=== PATIENT | female | born 1965 | race Caucasian/White ===

== ENCOUNTER 2017-06-25 11:09 | Emergency (ER) | payer OTHER, MEDICAID ==
[2017-06-25 11:20] VITALS: O2SAT 97
--- NOTE | 2017-06-25 13:21 | EDPHY ---
H & P Stated Complaint: swelling r foot without known inj Time Seen by Provider: 06/25/17 13:11 HPI/ROS: Chief Complaint: Right foot pain HPI: The patient presents to the ED with complaints of atraumatic right foot pain. She does have a history of increasing ambulation over the past week. 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 The patient denies any history of fall or trauma. She complains of pain along the plantar aspect of her right foot which is worsened with pressure and ambulation. She denies any fever. She denies any focal numbness or weakness. She denies additional complaints. REVIEW OF SYSTEMS: Neuro: no headache, numbness, weakness Musculoskeletal: As above Skin: no abrasion or lacerations Source: Patient Exam Limitations: No limitations - Personal History LMP (Females 10-55): Post Menopausal Current Tetanus/Diphtheria Vaccine: Yes Tetanus Vaccine Date: < 10 YEARS - Medical/Surgical History Hx Asthma: No Hx Chronic Respiratory Disease: No Hx Diabetes: No Hx Cardiac Disease: No Hx Renal Disease: No Hx Cirrhosis: No Hx Alcoholism: No Hx HIV/AIDS: No Hx Splenectomy or Spleen Trauma: No Other PMH: Denies achilles prob r foot - Social History Smoking Status: Never smoked - Physical Exam Exam: General: No acute distress Right foot: No bony tenderness to palpation appreciated, mild tenderness to palpation noted in the plantar fascia. Vascular: Normal capillary refill Neurologic: Sensation intact to light touch, 5/5 strength noted throughout the lower extremity Skin: No erythema, no swelling, no exudate Constitutional: Initial Vital Signs Temperature (C) 37 C 06/25/17 11:18 Heart Rate 83 06/25/17 11:18 Respiratory Rate 17 06/25/17 11:18 Blood Pressure 135/82 H 06/25/17 11:18 O2 Sat (%) 97 06/25/17 11:18 O2 Delivery Mode Room Air Allergies/Adverse Reactions: No Known Allergies Allergy (Verified 06/25/17 11:17) Home Medications: Medication Instructions Recorded Lurasidone HCl [Latuda] 20 mg PO DAILY 02/03/13 Amitiza 06/25/17 Medical Decision Making ED Course/Re-evaluation: The patient presents to the ED with a likely plantar fasciitis. The patient will be advised to wear supportive shoe. She is provided a prescription for 600 mg ibuprofen to take 3 times a day. She is referred to our on-call orthopedic surgeon for evaluation of any unimproved symptoms. Differential Diagnosis: Differential diagnosis considered includes fracture, sprain, dislocation, plantar fasciitis Departure - Departure Disposition: Home, Routine, Self-Care Clinical Impression: Right foot strain Condition: Good Instructions: Musculoskeletal Pain (ED) Additional Instructions: 1. Take Ibuprofen or Motrin 600 mg by mouth three times a day. 2. Please schedule follow up with the orthopedic surgeon you have been referred to for any unimproved symptoms. Referrals: Salomón Romo [Primary Care Provider] - As per Instructions
[2017-06-25 13:39] VITALS: BP 119/74; PULSE 61; RESP 18; TEMP 98.4
== END 2017-06-25 13:31 | disposition home or self-care (01) ==
DX: S96.911A Strain of unspecified muscle and tendon at ankle and foot level, right foot, initial encounter (principal); X58.XXXA Exposure to other specified factors, initial encounter

== ENCOUNTER → 2019-03-11 | Outpatient (CLI) | payer OTHER, MEDICAID | LOC: FIMAGING 10:19 ==